=== PATIENT | female | born 1960 | race African-American/Black ===

== ENCOUNTER 2018-07-29 13:46 | Emergency (ER) | payer SELFPAY ==
[2018-07-29] MEDS ORDERED: Ketorolac Tromethamine 30 MG/ML VIAL ONE (15:21)
== END 2018-07-29 15:45 | disposition home or self-care (01) ==
LOC: ERS 13:46
DX: M54.5 Low back pain (principal); G62.9 Polyneuropathy, unspecified; M79.661 Pain in right lower leg; F17.200 Nicotine dependence, unspecified, uncomplicated; Z79.899 Other long term (current) drug therapy
CPT/HCPCS: 96372; J1885

== ENCOUNTER 2019-08-13 16:04 | Emergency (ER) | payer SELFPAY ==
[2019-08-13] MEDS ORDERED: Ketorolac Tromethamine 30 MG/ML VIAL ONE (16:48)
== END 2019-08-13 17:37 | disposition home or self-care (01) ==
LOC: ERS 16:04
DX: G62.9 Polyneuropathy, unspecified (principal); M19.90 Unspecified osteoarthritis, unspecified site; F17.210 Nicotine dependence, cigarettes, uncomplicated; Z79.899 Other long term (current) drug therapy; Z79.891 Long term (current) use of opiate analgesic
CPT/HCPCS: 96372; 99283; J1885

== ENCOUNTER 2019-11-15 12:38 | Emergency (ER) | payer SELFPAY | END 2019-11-15 14:15 | disposition home or self-care (01) | LOC: ERS 12:38 | DX: G62.9 Polyneuropathy, unspecified (principal); F41.9 Anxiety disorder, unspecified; F17.210 Nicotine dependence, cigarettes, uncomplicated; Z79.899 Other long term (current) drug therapy | CPT/HCPCS: 99283 ==

== ENCOUNTER 2019-12-14 15:33 | Emergency (ER) | payer SELFPAY | END 2019-12-14 17:10 | disposition home or self-care (01) | LOC: ERS 15:33 | DX: G62.9 Polyneuropathy, unspecified (principal); F41.9 Anxiety disorder, unspecified; F17.210 Nicotine dependence, cigarettes, uncomplicated | CPT/HCPCS: 99283 ==

== ENCOUNTER 2020-01-31 06:37 | Emergency (ER) | payer SELFPAY | END 2020-01-31 07:35 | disposition home or self-care (01) | LOC: ERS 06:37 | DX: M54.9 Dorsalgia, unspecified (principal); F41.9 Anxiety disorder, unspecified; F17.210 Nicotine dependence, cigarettes, uncomplicated; G62.9 Polyneuropathy, unspecified | CPT/HCPCS: 99283 ==

== ENCOUNTER 2023-09-27 01:42 | Emergency (ER) | payer BC, SELFPAY ==
[2023-09-27] MEDS ORDERED: Ibuprofen 800 MG TAB ONE (05:27)
[2023-09-27 06:19] LABS: SARS-CoV-2 NAA Rapid Test Not Detected (NotDetected)
== END 2023-09-27 06:13 | disposition home or self-care (01) ==
LOC: ERS 01:42
DX: J10.1 Influenza due to other identified influenza virus with other respiratory manifestations (principal); F17.210 Nicotine dependence, cigarettes, uncomplicated
CPT/HCPCS: 99283